=== PATIENT | female | born 1995 | race Caucasian/White ===

== ENCOUNTER 2017-01-23 06:12 | Emergency (ER) | payer OTHER ==
[2017-01-23 05:15] LABS: AMPHETAMINE NEG (NEG); BARBITURATES NEG (NEG); BENZODIAZEPINES POS (NEG); COCAINE NEG (NEG); MARIJUANA POS (NEG); OPIATES NEG (NEG); TRICYCLIC ANTIDEPRESSANTS NEG (NEG); U METHADONE NEG (NEG)
== END 2017-01-23 08:10 | disposition short-term general hospital (02) ==
LOC: CED 06:12
PROVIDERS: Physician Assistant
DX: S51.812A Laceration without foreign body of left forearm, initial encounter (principal); F32.9 Major depressive disorder, single episode, unspecified; R45.851 Suicidal ideations; F43.10 Post-traumatic stress disorder, unspecified; F17.200 Nicotine dependence, unspecified, uncomplicated; Z79.899 Other long term (current) drug therapy; X78.9XXA Intentional self-harm by unspecified sharp object, initial encounter; Y92.009 Unspecified place in unspecified non-institutional (private) residence as the place of occurrence of the external cause
CPT/HCPCS: 12002; 36415; 80307; 84703; 99283; G0480

== ENCOUNTER 2017-01-23 08:38 | Inpatient (IN) | payer OTHER ==
--- NOTE | ~2017-01-23 | PN ---
Unit #: [id number] #: [id number] Patient: JOE ESCAMILLA [id number] [facility] [address] [place] [address] [id number] MR#: [id number] NAME: JOE ESCAMILLA. ROOM: P209 Age: 21 Sex: F Admission Date: 01/23/2017 : 1995 Attending Physician: Bong Villalobos M.D. Admitting Physician: Bong Villalobos M.D. Primary Care Physician: Juli Phipps PROGRESS NOTES DATE OF SERVICE 01/24/2017 DISCUSSION Joe Escamilla is a 21-year-old female seen on 01/24/2017. The patient interviewed, chart reviewed. Obtained information from nursing staff. The patient continues to be sad, dysphoric, flat affect, withdrawn, guarded. The patient denied any other complaints. Still feeling sad, depressed. Flat affect. Complete Review of Systems: Unremarkable. MENTAL STATUS EXAMINATION General Appearance: The patient dressed casually. Attention span, concentration: Fair. Oriented in place and person. Mood and affect: Sad, dysphoric. Speech: Monotone. Thought process: [place]. The patient denied any thoughts of harming self or others. Denied any suicidal ideation but still having passive thoughts. Recent and remote memory: Poor. Insight and judgment: Poor. DIAGNOSES PSYCHIATRIC: Major depressive disorder, recurrent. Rule out bipolar mood disorder. Cannabis abuse, moderate. SECONDARY: Borderline personality trait/disorder. ASSESSMENT/PLAN Advised to continue with current precaution to keep the patient safe. Continue with the inpatient programming. Advised to discontinue Abilify and Lexapro combination and start the patient on Prozac 20 mg daily, Zyprexa 10 mg daily combination. We will closely monitor. If needed, consider further adjustment of medication. Dictated by... Bong Villalobos M.D. SZYoshi/francyg TD: 01/25/2017 09:12 JOB #: [id number] Unit #: [id number] #: [id number] Patient: JOE ESCAMILLA PROGRESS NOTES Page 1 of 1 X Bong Villalobos MD PROGRESS NOTE
--- NOTE | ~2017-01-23 | DS ---
Unit #: [id number] #: [id number] Patient: JOE NELSON [id number] [facility] [address] [place] [address] [id number] MR#: [id number] NAME: JOE ENLSON. ROOM: P209 Age: 21 Sex: F Admission Date: 01/23/2017 : 1995 Discharge Date: 01/25/2017 Attending Physician: Bong Villalobos M.D. Primary Care Physician: Jak Obrien M.D. DISCHARGE SUMMARY REASON FOR ADMISSION Self-harm, depression. DIAGNOSTIC STUDIES LABORATORY DATA: Unremarkable except urine drugs screen positive for benzodiazepines and marijuana. HOSPITAL COURSE The patient was admitted to inpatient unit on January 23 and discharged on 01/23/2017 with her mother at her request. The patient at this time not suicidal or homicidal. Unable to contract for safety. Able to maintain safe behavior during our stay and denied any self-harm or thoughts of harming herself. The patient pleasant, cooperative during her stay. Able to participate in all the programming. Received maximum benefit. DISCHARGE MEDICATIONS 1. Prozac 20 mg daily for depression. 2. Zyprexa 10 mg daily for mood stabilization. 3. Desyrel 150 mg daily for sleep. DISCHARGE DIAGNOSES PSYCHIATRIC: Bipolar mood disorder not otherwise specified, F31.89. Anxiety disorder not otherwise specified, F41.9 Cannabis abuse, moderate, F12.20 SECONDARY: Borderline personality disorder. MEDICAL: History of hydrocephalus. STRESSORS: Psychosocial stressor. FOLLOWUP CARE The patient to follow up as per geriatric social worker. CONDITION ON DISCHARGE The patient pleasant, cooperative. Denied any psychotic symptom or any suicidal ideation. PROGNOSIS Guarded. DIET AND ACTIVITY As tolerated. Dictated by... Unit #: [id number] #: [id number] Patient: JOE NELSON Juli Bear/anahi TD: 01/28/2017 07:52 JOB #: [id number] DISCHARGE SUMMARY Page 1 of 1 X Bong Villalobos MD X DISCHARGE SUMMARY
--- NOTE | ~2017-01-23 | PA ---
Unit #: [id number] #: [id number] Patient: JOE NELSON [id number] [facility] [address] [place] [address] [id number] I MR#: [id number] NAME: JOE NELSON. ROOM: P209 Age: 21 Sex: F Admission Date: 01/23/2017 : 1995 Date of Assessment: Attending Physician: Bong Villalobos M.D. Admitting Physician: Bong Villalobos M.D. Primary Care Physician: Jak Obrien M.D. PSYCHIATRIC ASSESSMENT INFORMANTS The patient reliability, fair informant and chart reliability, good. CHIEF COMPLAINT Borderline personality disorder and suicide attempt by cutting. HISTORY OF PRESENT ILLNESS Ms. Joe Nelson is a 21-year-old female, presented with the above-mentioned complaint. The patient was initially assessed at [facility] and subsequently sent to [facility] where she received stitches on her left forearm. The patient attempted suicide by cutting her left forearm with a razor, requiring 14 stitches. The patient was placed on 72-hour hold. The patient reported current stressor, receiving outpatient services, medication not working. The patient reported this is her second suicide attempt. Reported depression and anxiety worsened in the last month. Also, admitted bingeing on alcohol, depressed, and having panic attack. The patient reports good support from brother and [id number]. The patient also reported history of [facility] program at [place] and outpatient treatment from a private psychiatrist from age 14. The patient needing inpatient admission at this time for psychiatric stabilization. PAST PSYCHIATRIC HISTORY Remarkable for history of previous treatment as mentioned above. FAMILY HISTORY AND SOCIAL HISTORY The patient has a good support system. No history of abuse. Family psychiatric illness is remarkable for history of depression and anxiety in grandmother. MEDICAL HISTORY Remarkable for history of hydrocephalus. MEDICATION HISTORY The patient is on Abilify 10 mg in the morning, Lexapro 20 mg in the morning, Trokendi 50 mg in the morning, control pill, and Restoril at bedtime. ALLERGIES No known drug allergies. REVIEW OF SYSTEMS HEENT: Eyes, clear. Ears, nose, mouth, and throat; clear. Unit #: [id number] #: [id number] Patient: JOE NELSON CARDIOVASCULAR: Unremarkable. RESPIRATORY: Unremarkable. GI: Unremarkable. : Unremarkable. SKIN: The patient has 14 stitches on her left forearm. LYMPH NODE: Unremarkable. NEUROLOGIC: Unremarkable. ENDOCRINE: Unremarkable. HEMATOLOGIC: Unremarkable. ALLERGIC/IMMUNOLOGIC: Unremarkable. MUSCULOSKELETAL: Muscle strength and tone, no atrophy or abnormal movement. Gait normal, except the patient has a history of hydrocephalus. MENTAL STATUS EXAMINATION CONSTITUTIONAL: Measurement of vital signs; temperature 98.5, pulse rate 94, respiratory rate 20, oxygen saturation 99%, and blood pressure 122/76. Height 5 feet 4 inches and weight 136 pounds.GENERAL APPEARANCE: The patient dressed casually, thin built, pleasant, and cooperative. No facial deformity noted. MUSCULOSKELETAL: Please see above. PSYCHIATRIC EXAMINATION Description of speech; regular rate, normal volume, normal articulation, and coherent. Description of thought process, goal directed. Description of association, intact. Description of abnormal psychotic thinking; the patient denied any hallucinations or delusions, but depression and suicidal ideation. No homicidal ideation. Description of the patient's judgment: Concerning everyday activity, poor. Social situation, poor. Concerning psychiatric condition, poor. Complete mental status examination; oriented in time, place, and person. Recent and remote memory, fair. Attention span and concentration, fair. Language, able to name object and repeat phrases. Fund of knowledge, aware of current event and passive vocabulary intact. Mood and affect, sad and dysphoric. Insight and judgment, fair to poor. ASSETS AND LIABILITIES Assets, the patient is articulate and able to take care of her ADL. Liability; history of depression, chronic and suicide attempt. ADMITTING DIAGNOSES Psychiatric: Major depressive disorder, recurrent, severe, F33.3; anxiety disorder, not otherwise specified; and cannabis abuse, moderate, F12.20. Secondary diagnosis: Deferred. Medical diagnoses: History of hydrocephalus, 14 stitches on left forearm from self-injurious behavior, and suicide attempt. Stressors: Psychosocial stressors. PSYCHIATRIC PLAN AND TREATMENT GOAL AND DISCHARGE PLAN 1. Advised to admit the patient on the inpatient unit. Provide safe, supportive, and structured environment. 2. Ordered labs; CBC, CMP, UA, UDS, and test. 3. SP2 precaution. The patient to attend all the programing on the inpatient unit. Plan to consider alternative medication such as Zyprexa and Prozac combination. The patient to continue with the inpatient Unit #: [id number] #: [id number] Patient: JOE NELSON programing. Attend group therapy, individual therapy, and medication management. TREATMENT GOAL To attain euthymic mood, gain insight into her problem, and learn coping skills. DISCHARGE PLAN Plan to stabilize the patient and consider followup in outpatient program. ESTIMATED LENGTH OF STAY 5 days. Dictated by... Bong Villalobos M.D. BRYAN/merari TD: 01/24/2017 16:56 JOB #: [id number] PSYCHIATRIC ASSESSMENT Page 1 of 1 X Bong Villalobos MD X PSYCHIATRIC ASSESSMENT
--- NOTE | ~2017-01-23 | HP ---
Unit #: [id number] #: [id number] Patient: JOE NELSON [id number] [facility] [address] [place] [address] [id number] MR#: [id number] NAME: JOE NELSON. ROOM: P209 Age: 21 Sex: F Admission Date: 01/23/2017 : 1995 Attending Physician: Bong Villalobos M.D. Admitting Physician: Bong Villalobos M.D. Primary Care Physician: Jak Obrien M.D. HISTORY AND PHYSICAL HISTORY OF PRESENT ILLNESS Joe is a 21 year old admitted to [address] [place] [address] with depression and after harming herself. She cut her arm. It was sutured in the emergency room. PAST MEDICAL HISTORY History of hydrocephalus. PAST SURGICAL HISTORY Oral. ALLERGIES No known drug allergies. SOCIAL HISTORY Smokes 1 pack per day. Drinks alcohol socially. Admits to using cocaine and marijuana. FAMILY HISTORY Medically noncontributory. REVIEW OF SYSTEMS CONSTITUTIONAL: No fever or chills. HEENT: Denies any sore throat, ear pain or runny nose. CARDIOVASCULAR: Denies chest pain, irregular heart rhythm or palpitations. CHEST: Denies shortness of breath or cough. No hemoptysis. GASTROINTESTINAL: Denies nausea, vomiting, diarrhea or chronic constipation. ENDOCRINE: Denies history of increased thirst or urination. No recent significant weight loss or gain. GENITOURINARY: Denies dysuria, frequency, or hematuria. SKIN: Denies any rashes. HEMATOLOGIC: Denies history of increased bleeding or bruising. MUSCULOSKELETAL: Denies any hot, swollen joints. No generalized muscle pain. NEUROLOGIC: Denies problems with vision or speech. No frequent, severe headaches. No numbness, tingling or weakness in any extremities. Denies loss of bladder or bowel control. CURRENT MEDICATIONS 1. Lexapro 20 mg daily. 2. Abilify 10 mg daily. 3. Seroquel 100 mg q.h.s. 4. Trazodone 150 mg q.h.s. Unit #: [id number] #: [id number] Patient: JOE NELSON 5. Temazepam 15 mg q.h.s. 6. Milk of Magnesia p.r.n. 7. Maalox p.r.n. 8. Tylenol p.r.n. 9. Nicotine patch 14 mg daily. PHYSICAL EXAMINATION GENERAL: Alert, well-nourished, no apparent distress. VITAL SIGNS: Blood pressure 122/76, heart rate 94, respirations 16, temperature 98.6. WEIGHT: 136. HEIGHT: 5 feet 4 inches. SKIN: Warm and dry without rash. She has a significant laceration along the left anterior forearm. Sutures are in place and there is very good skin approximation without redness, swelling, heat or pus noted. HEENT: Normocephalic. TMs not viewed. Oral and nasal passages clear. Conjunctivae clear. PERRLA. EOMs intact. NECK: Supple without lymphadenopathy or thyromegaly. HEART: Regular rate and rhythm without murmur. LUNGS: Clear. ABDOMEN: Soft, nontender. : Not done. EXTREMITIES: No evidence of cyanosis, clubbing or edema. Moves all without focal deficit. NEUROLOGICAL: Grossly within normal limits. Cranial Nerves: II: Visual payan are intact. III, IV AND : Extraocular movements are intact. Pupils are equal, round and reactive to light. V: Facial sensation is grossly normal. VII: Facial movements and expression are normal. VIII: Auditory acuity grossly intact. IX, X: Uvula is midline. Phonation is normal. XI: Patient shrugs shoulders and turns head normally. XII: Tongue protrudes in the midline. Sensory and Motor Function: Sensory and motor sensation is grossly normal. Motor: moves all extremities well. Coordination: Gait is normal. Deep Tendon Reflexes: Intact. IMPRESSION 1. Psychiatric admission. 2. Self-inflicted laceration sustained prior to this admission. RECOMMENDATIONS PSYCHIATRIC: Per psychiatrist. MEDICAL: 1. See no contraindications to participate in facility's activities. 2. Suture removal in 7 days. MEDICAL PROGNOSIS Good. MEDICAL CONDITION Stable. Dictated by... Benita Grissom P.A.-C. for Live Lopez M.D. Unit #: [id number] #: [id number] Patient: JOE NELSON KIM/meagan TD: 01/23/2017 20:46 JOB #: [id number] HISTORY AND PHYSICAL Page 1 of 1 X Benita Grissom HISTORY AND PHYSICAL
--- NOTE | ~2017-01-23 | PN ---
Unit #: [id number] #: [id number] Patient: JOE NELSON [id number] [facility] [address] [place] [address] [id number] MR#: [id number] NAME: JOE NELSON. ROOM: P209 Age: 21 Sex: F Admission Date: 01/23/2017 : 1995 Attending Physician: Bong Villalobos M.D. Admitting Physician: Bong Villalobos M.D. Primary Care Physician: Juli Phipps PROGRESS NOTES DATE 01/25/2017 DISCUSSION Joe Nelson is a 21-year-old female seen on 01/25/2017. The patient interviewed, chart reviewed. Obtained information from nursing staff. The patient compliant and cooperative. Mood sad, dysphoric, flat affect, guarded. The patient tolerating medication fairly well. No side effects from medication. The patient sleeping good. Able to maintain safe behavior. Complete review of systems unremarkable. MENTAL STATUS EXAMINATION General appearance, the patient dressed casually. Attention span and concentration fair. Oriented to place and person. Mood and affect sad, dysphoric, flat, isolative, guarded. The patient denied any thoughts of harming self or others but guarded, isolative. Recent and remote memory poor. Insight and judgement poor. DIAGNOSES Bipolar mood disorder NOS Borderline personality disorder ASSESSMENT/PLAN Advise to continue with current medication and therapeutic protocol. If needed consider further adjustment of medication. Dictated by... Juli Bear/lex TD: 01/27/2017 05:19 JOB #: [id number] Unit #: [id number] #: [id number] Patient: JOE NELSON PROGRESS NOTES Page 1 of 1 X Bong Villalobos MD PROGRESS NOTE
[2017-01-24 09:35] LABS: BASOPHIL% 0.6 % (0-2.5); EOSINOPHIL# 0.2 X10e3 (0-0.7); EOSINOPHIL% 3.1 % (0.0-7.0); HEMATOCRIT 37.5 % (35.0-45.0); HEMOGLOBIN 12.3 gm/dL (12.0-16.0); LYMPHOCYTE# 2.1 X10e3 (1.0-3.5); LYMPHOCYTE% 35.3 % (17.0-45.0); MEAN CELL VOLUME 88.9 FL (83-96); MEAN CORPUSCULAR HEMOGLOBIN 29.1 PG (28-34); MEAN CORPUSCULAR HGB CONC 32.7 g/dL (30-36); MEAN PLATELET VOLUME 9.9 FL (6.5-11.5); MONOCYTE# 0.3 X10e3 (0-1.0); MONOCYTE% 5.3 % (3.0-12.0); NEUTROPHIL# 3.4 X10e3 (1.5-7.1); NEUTROPHIL% 55.7 % (40-75); PLATELET COUNT 203 X10e3 (140-420); RED BLOOD COUNT 4.22 X10e (3.90-5.30); RED CELL DISTRIBUTION WIDTH 13.1 % (11.0-15.5)
[2017-01-24 09:36] LABS: URINE APPEARANCE CLEAR; URINE BILIRUBIN NEG (NEG); URINE BLOOD 3+ (NEG); URINE COLOR YELLOW; URINE GLUCOSE NEG (NEG); URINE KETONE NEG (NEG); URINE LEUKOCYTE ESTERASE NEG (NEG); URINE NITRATE NEG (NEG); URINE PH 6.5 (5-8); URINE PROTEIN NEG (NEG); URINE SPECIFIC GRAVITY 1.022 (1.003-1.035); URINE UROBILINOGEN 0.2 MG/DL (NEG)
[2017-01-24 09:41] LABS: U HYALINE CASTS AUWI 0-2 /[LPF]; URINE BACTERIA AUWI 1+ (NEGATIVE); URINE SQUAMOUS EPITHELIAL CELL FEW /[HPF]
[2017-01-24 09:49] LABS: DIFF IND NO
[2017-01-24 10:18] LABS: ALBUMIN SERUM 3.8 g/dL (3.5-5.0); BILIRUBIN,TOTAL 0.3 mg/dL (0.2-2.0); BUN/CREATININE RATIO 18.75; CREATININE SERUM 0.8 mg/dL (0.6-1.4); GLOM FILT RATE Estimated 104.7 mL/min (>60); POTASSIUM 3.9 mmol/L (3.5-5.1); PROTEIN TOTAL SERUM 6.3 g/dL (6.0-8.3)
== END 2017-01-25 14:20 | disposition home or self-care (01) | DRG 885 ==
LOC: P2S 08:38
PROVIDERS: Psychiatry & Neurology Psychiatry
DX: F33.3 Major depressive disorder, recurrent, severe with psychotic symptoms (principal); F41.9 Anxiety disorder, unspecified; F12.20 Cannabis dependence, uncomplicated; X78.9XXD Intentional self-harm by unspecified sharp object, subsequent encounter; F17.210 Nicotine dependence, cigarettes, uncomplicated; F60.3 Borderline personality disorder
CPT/HCPCS: 80053; 81003; 84703; 85025